=== PATIENT | female | born 1975 | race Caucasian/White ===

== ENCOUNTER 2022-10-07 12:30 | Outpatient (AMB) | payer OTHER, MEDICAID, SELFPAY ==
[2022-10-07 12:40] VITALS: BMI 24.4
--- NOTE | 2022-10-07 12:40 | MHC.OFFVIS ---
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 States she is experiencing numbness, tingling, swelling and weakness for the last 3 months. States no injury. Also has right middle and ring finger trigger finger for the last 7 years. Explains she feels tightness in her arm from her bicep to her finger. States this prevent her from doing her daily activities. States she has constant numbness in her ring finger. She is not able to make a full close fist and is not able to fully open hand with out severe pain. Patient believes she might have a fracture in her ring finger. Allergies aspirin Allergy (Mild, Verified 10/07/22 12:41) hives acetaminophen [From TYLENOL] Allergy (Unknown, Unverified 10/07/22 12:41) HIVES meperidine [Demerol] Allergy (Unknown, Verified 10/07/22 12:41) hives Sulfa (Sulfonamide Antibiotics) [SULFA(SULFONAMIDE ANTIBIOTICS)] Allergy (Unknown, Unverified 10/07/22 12:41) FEVER/BODY ACHES Sulfacet-R Allergy (Mild, Uncoded 10/07/22 12:41) comma From DEMEROL Allergy (Unknown, Uncoded 10/07/22 12:41) ANAPHYLAXIS HPI SEO PROFESSIONAL-CTS RT hand Swelling and weakness HPI Details Annalise is a 47 year old right hand dominant woman who presents with complaints of right hand pain. Her primary complaint is of pain in her hand with daily activity. She says she cannot make a closed fist or fully extend her fingers without pain. She also complains of tightness in her arm, from her biceps down to her fingers. She says this limits her ADLs and is frustrated by this She also complains of constant numbness in her ring finger, better on the ulnar aspect of the finger, with normal sensation in her other digits Most of her pain is in the volar aspect of her middle & ring fingers She reports being bitten by her cat ~4 months ago, not on her hand or wrist. She denies any symptoms of infection She denies any other falls or known injury She is a smoker. She does not have RA, but says she has Primary progressive multiple sclerosis (PPMS). She has a hx of C-spine surgery C3-C4 and bulging discs at C2-C3, C4-C5, and C6-C7 She has a long list of previous active jobs, including landscaping, owning a restaurant, cleaning houses, and detailing cars [facility] Surgical History (Updated 11/03/21 @ 13:42 by PAVAN Blankenship) H/O cervical spine surgery History of hysterectomy Social History (Updated 10/07/22 @ 12:43 by Nae Carranza [facility]) Current occupational status: disabled Current occupation: right hand / Review of Systems Const All systems reviewed & are unremarkable except as noted in HPI and below Physical Exam Vital Signs: BMI result Body Mass Index 24.4 Const General: cooperative, healthy appearing and no acute distress Orientation/consciousness: patient oriented x3 HEENT Head: Yes normocephalic and Yes atraumatic Eyes EOM: EOMs intact bilaterally Resp Effort & Inspection: normal respiratory effort and able to speak in complete sentences Cardio Jugular venous distension: no JVD Skin General skin exam: turgor normal Rashes: no rashes Neuro General: patient oriented x3 Extrem Other: Evaluation of Right Upper Extremity: The patient is alert, oriented, and in no acute distress Neuro: Numbness in the radial side of the ring finger and ulnar side of the middle finger. More normal sensation in the ulnar aspect of the ring finger, and the index finger. Normal sensation to thumb and small finger. Vascular: Cap refill brisk ROM: All of the fingers are held in a position of slight flexion. She was weakly able to demonstrate flexion of the index middle and ring fingers. Small finger: Normal FDP and FDS tendon function without discomfort. Thumb: Normal active flexion and extension without discomfort. Attempt set active extension of the fingers limited by pain referred to the volar aspect of the wrist. Unable to passively extend the fingers fully also because of pain referred to the volar aspect of the wrist. Similarly, she would not actively flex her index middle and ring fingers to a fist because of the pain referred to the volar aspect of the wrist. Full active flexion and extension of the thumb and small finger without pain. There is a visible fullness in the volar aspect of the left wrist that measures approximately 3 cm in diameter. There is perhaps a slight bluish discoloration beneath the skin. No overlying skin changes. It is also mildly tender to palpation. She only has a small amount of active or passive wrist flexion wrist extension because this also causes pain in the volar aspect of her wrist. Skin: No lacerations or abrasions. Specifically, no lacerations or evidence of open injury over the volar aspect of the wrist She denies ever having surgery over the volar aspect of her wrist. General: No Ecchymosis. No Erythema or evidence of infection. Psych Appearance: grossly normal Affect: normal affect Attitude: cooperative Assessment & Plan Assessment & Plan (1) Numbness and tingling in right hand: Code(s): R20.0 - Anesthesia of skin; R20.2 - Paresthesia of skin (2) Mass of right wrist: Code(s): R22.31 - Localized swelling, mass and lump, right upper limb Plan Assessment & Plan: 1. Right volar wrist mass Possible flexor tenosynovitis vs flexor tendon injury Duration ~3 months No known injury 2. Numbness involving the middle and ring fingers Possibly related to right wrist mass I educated her about this condition. The etiology of her mass is unclear. This volar wrist mass definitely appears to be related to the pain she has with active her passive range of motion of the index middle or ring fingers, or of significant motion at the wrist. I believe this mass is also likely related to the numbness that she is having in the middle and ring fingers. Some possibilities are a flexor tenosynovitis, possible flexor tendon rupture injury, though I am not sure why she would have this problem. Another possibility is some other kind of soft tissue mass in the area. I ordered an MRI of her right wrist with IV contrast for assessment She will follow up when completed for review Patient reports rheumatologic work-up was negative Scribed for Olimpia Castillo MD by Alfa Doan, medical and health services manager, on 10/07/22 at 1:20 PM, EST. Orders: Orders MR wrist RT wo/w con Today R20.0 - Anesthesia of skin, R20.2 - Paresthesia of skin, R22.31 - Localized swelling, mass and lump, right upper limb Coding Level of Care Code New Pt Level 3 (96606) Diagnoses Numbness and tingling in right hand R20.0; R20.2 Mass of right wrist R22.31
== END 2022-10-07 13:19 | disposition home or self-care (01) ==
PROVIDERS: PCP Family Medicine; Visit Provider Orthopaedic Surgery
DX: R22.31 Localized swelling, mass and lump, right upper limb (principal); R20.0 Anesthesia of skin; R20.2 Paresthesia of skin
CPT/HCPCS: 99204

== ENCOUNTER → 2022-10-07 12:30 | Outpatient (BNVA) | payer MEDICARE, MEDICAID, SELFPAY | PROVIDERS: PCP Family Medicine; Visit Provider Orthopaedic Surgery ==

== ENCOUNTER 2022-11-09 14:03 | Outpatient (AMB) | payer OTHER, MEDICAID, SELFPAY ==
--- NOTE | 2022-11-09 14:08 | A.OFFVIS_ITS ---
Intake Vital Signs 11/09/22 14:16 Height 5 ft 4 in Weight 142 lb 3 oz BMI 24.4 BP 154/78 H Blood Pressure Location Rt brachial Position Sitting Pulse 75 Pulse Source Pulse Oximeter Pulse Oximetry (%) 96 Oxygen Delivery Method Room Air Intake Visit Reasons: cervical radiculopathy /Confirmed Intake Note: Pain today 08/17 Oil Field Equipment Mechanic Required: No Allergies aspirin Allergy (Mild, Verified 11/09/22 14:18) hives acetaminophen [From TYLENOL] Allergy (Unknown, Verified 11/09/22 14:18) HIVES meperidine [Demerol] Allergy (Unknown, Verified 11/09/22 14:18) hives Sulfa (Sulfonamide Antibiotics) [SULFA(SULFONAMIDE ANTIBIOTICS)] Allergy (Unknown, Verified 11/09/22 14:18) FEVER/BODY ACHES Sulfacet-R Allergy (Mild, Uncoded 10/07/22 12:41) comma From DEMEROL Allergy (Unknown, Uncoded 10/07/22 12:41) ANAPHYLAXIS Medication List - Last Reconciled 11/09/22 by SAGAR Gibson gabapentin 400 mg PO TID ibuprofen 600 mg PO TID methadone 80 mg PO DAILY omeprazole 20 mg PO DAILY HPI cervical radiculopathy /Confirmed HPI Details Patient is a pleasant 47 years old female with history of chronic cervical radiculopathy, s/p C6-C7 ACDF in [address] [facility], presents today for initial evaluation of chronic neck pain. Denies any recent trauma, injury or falls. Patient reports neck pain with extension and limited with lateral moves. Cervical flexion or bending relieves her neck pain. Right hand dominant. She also is following with Dr. Castillo for right hand pain with numbness and tingling and evaluation of wrist lump. She is awaiting MRI of right wrist. Neck exam did not reproduce any cervical radiculopathy symptoms today. Her right hand pain does radiate to her lower arm and lateral upper arm. Pain affects her daily activities, functioning, mood, social interactions, sleep and quality of life. Patient reports she has been told no additional neck surgery is needed per recent cervical MRI in August. Patient is interested to undergo diagnostic cervical medial branch blocks for her facetogenic, axial cervical pain for potential peripiheral nerve stimulation with Sprint device. Denies any fever, visual changes, headaches, shortness of breaths, chest pain, gait imbalances, bladder or bowel dysfunction or saddle anesthesia. Patient is a smoker who is trying to quit. She reports 2 cigarettes per day and would like to quit smoking as she recently became grandma and would like to quit permanently. 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 She is on methadone 80 mg/daily. Location Neck Duration Chronic pain for many years Characteristics of symptom or complaint Aching, shock, stabbing, weakness right hand (wrist lump) Aggravating or associated factors Movements, looking up, stress, weather changes Relieving factors Tylenol, methadone, NSAIDs Treatment C6-C7 ACDF surgery in 2013, home exercise program-neck stretches daily [facility] Surgical History (Updated 11/09/22 @ 14:19 by SAGAR Gibson) H/O cervical spine surgery History of hysterectomy Social History (Updated 10/07/22 @ 12:43 by Nae Cararnza [facility]) Alcohol intake: never Patient Tobacco Use Status: Current everyday Tobacco user Tobacco use type: Cigarette Cigarettes Per Day: 2 Substance Use Type: Marijuana Current occupational status: disabled Current occupation: right hand / Review of Systems Const All systems reviewed & are unremarkable except as noted in HPI and below Physical Exam General: Appears afebrile. Alert and oriented. Mood and affect appropriate. Follows and participates in conversation appropriately. Respiratory effort is unlabored. No cough. Able to transition from sit to stand unassisted. Ambulates with bilaterally normal heel strike and toe off. Neck Other: Patient with decreased cervical ROM with lateral rotation. Reports increased pain with cervical extension and relieved with flexion or bending. Spurling compression test negative Pain is unchanged by Spurling maneuver with retraction. Elvey's tension test negative bilaterally. Lhermitte's test was negative. DTR intact, +2 and symmetrical. Patient demonstrated 5/5 left and 3- 4/5 right due to pain motor strength of bilateral upper extremities. 2 + radial pulses. Small tenderness lump right wrist. Reports numbness and tingling in 3- 4th fingers and occasionally 5th finger on the right. Normal sensation right thumb. Mild to moderate tightness throughout left upper trapezius as well as TTP throughout bilateral upper trapezius muscles. No paravertebral tenderness over facet joint on affected side. No clonus. Neck: Yes normal visual inspection, Yes no lymphadenopathy, Yes no meningeal signs, Yes supple, No anterior neck swelling and Yes no JVD Back/Spine/Pelvis Cervical Spine: cervical muscular tenderness, pain with cervical ROM, cervical spasm, No Cervical spine tenderness and No step off deformity Thoracic/Lumbar Spine: thoracic and lumbar spine normal to inspection, No thoracic spinal tenderness and No lumbar spinal tenderness Neuro General: no meningeal signs Results Reviewed Results Reviewed: MR CERVICAL SPINE WITHOUT CONTRAST 08/13/22 at [facility] CLINICAL INFORMATION: Prior cervical spine surgery in 2013. Chronic cervical radiculopathy. COMPARISON: None available. TECHNIQUE: Multiplanar, multisequential imaging of the cervical spine was performed without contrast. FINDINGS: VERTEBRAL BODIES AND PARASPINAL SOFT TISSUES: The patient is status post a prior anterior cervical discectomy and fusion at the C6-C7 level. The marrow signal is homogeneous. There are no compression fractures or significant subluxations. No marrow or soft tissue edema identified. No cord signal abnormality is seen. CERVICOMEDULLARY JUNCTION AND VISUALIZED POSTERIOR FOSSA: The craniovertebral junction and imaged portions of the brain parenchyma appear normal. SPINAL LEVELS: C2-C3: No significant disc pathology. No central canal stenosis or foraminal narrowing. C3-C4: Mild disc bulge and anterior endplate spurring. No central canal stenosis or foraminal narrowing. Left-sided hypertrophic facet arthropathy. C4-C5: Right-sided hypertrophic facet arthropathy. No central canal stenosis or significant foraminal encroachment. No disc pathology. C5-C6: Mild disc bulge with right-sided hypertrophic facet arthropathy. No central canal stenosis or foraminal narrowing. C6-C7: Post fusion changes without central canal stenosis or foraminal narrowing. C7-T1: No disc pathology. Patent central canal and foramina with mild facet arthropathy. IMPRESSION: Status post anterior cervical discectomy and fusion with hardware instrumentation at C6-C7. Mild disc bulges at C3-C4 and C5-C6. Hypertrophic facet arthropathy on the left side at C3-C4 and on the right side at C4-C5 and C5-C6. No central canal stenosis or focal disc protrusion. Assessment & Plan Assessment & Plan (1) H/O cervical spine surgery: Code(s): Z98.890 - Other specified postprocedural states (2) Chronic cervical radiculopathy: Code(s): M54.12 - Radiculopathy, cervical region (3) Cervical spondyloarthritis: Code(s): M47.812 - Spondylosis without myelopathy or radiculopathy, cervical region Plan Schedule Diagnostic Bilateral C4-C5-C6 MBBs with local and fluoroscopy for axial, facetogenic cervical pain. If she has significant relief from the diagnostic blocks for her neck pain, will consider Sprint PNS trial. We also discussed therapeutic injections and cervical medial branch RFA options. Informational pamphlets provided to patient. Expectations, risks and benefits were reviewed. Patient is aware she will be contacted to schedule this procedure. All questions were answered and the patient is in agreement of plan. Follow-up after injections and sooner as needed. Coding Level of Care Code New Pt Level 4 (29334) Diagnoses H/O cervical spine surgery Z98.890 Chronic cervical radiculopathy M54.12 Cervical spondyloarthritis M47.812
[2022-11-09 14:16] VITALS: BP 154/78; PULSE 75; O2SAT 96; BMI 24.4
== END 2022-11-09 14:41 | disposition home or self-care (01) ==
PROVIDERS: PCP Family Medicine; Visit Provider Nurse Practitioner Family
DX: M54.12 Radiculopathy, cervical region (principal); M47.812 Spondylosis without myelopathy or radiculopathy, cervical region; Z98.890 Other specified postprocedural states
CPT/HCPCS: 99204

== ENCOUNTER → 2022-11-09 14:03 | Outpatient (BNVA) | payer OTHER, SELFPAY | PROVIDERS: PCP Family Medicine; Visit Provider Nurse Practitioner Family ==

== ENCOUNTER 2022-12-18 11:47 | Outpatient (REF) | payer OTHER, SELFPAY ==
[2022-12-18 14:42] LABS: Anion Gap 8 (12-20); Blood Urea Nitrogen 20 mg/dL (9-16); Carbon Dioxide 28 mmol/L (22-29); Chloride 106 mmol/L (96-108); Estimated Glomerular Filt Rate > 60; Glucose Random 89 mg/dL (60-115); Potassium 4.1 mmol/L (3.3-5.1); Sodium 138 mmol/L (135-145)
== END 2022-12-18 11:48 | disposition home or self-care (01) ==
LOC: HO.CHCLDS 11:47
PROVIDERS: Visit Provider Family Medicine
DX: M54.12 Radiculopathy, cervical region (principal)
CPT/HCPCS: 36415; 80048

== ENCOUNTER 2023-01-15 11:07 | Outpatient (REF) | payer OTHER, SELFPAY ==
[2023-01-15 15:01] LABS: Rheumatoid Factor 112.4 IU/mL (<15.0)
[2023-01-15 15:02] LABS: C Reactive Protein 1.02 mg/dL (< or = 0.50)
[2023-01-15 15:32] LABS: Erythrocyte Sedimentation Rate 22 MM/HR (0-20)
[2023-01-16 04:28] LABS: ~Hepatitis C Antibody Nonreactive (Nonreactive)
[2023-01-16 05:48] LABS: Lyme Abs Screen <0.90 index
[2023-01-18 13:03] LABS: Cyclic Citrullinated Peptide 215 UNITS
[2023-01-19 08:04] LABS: Anti Nuclear Antibody Screen NEGATIVE (NEGATIVE)
[2023-01-19 18:35] LABS: Anti DNA DS Antibody <1 IU/mL
== END 2023-01-15 11:08 | disposition home or self-care (01) ==
LOC: HO.CHCLDS 11:07
PROVIDERS: Visit Provider Family Medicine
DX: M25.50 Pain in unspecified joint (principal)
CPT/HCPCS: 36415; 85652; 86038; 86140; 86200; 86225; 86431; 86617; 86618; 86803

== ENCOUNTER 2023-07-14 14:35 | Outpatient (REF) | payer MEDICARE, MEDICAID, SELFPAY ==
[2023-07-14 18:47] LABS: Basophils Percent Auto 0.2 % (0-2); Hematocrit 38.8 % (37.0-47.0); Hemoglobin 12.7 g/dl (12.0-16.0); Imm Gran Abs Auto 0.06 X10*3/uL (0.00-0.03); Imm Gran Pct Auto 0.5 % (0.0-0.4); Lymphocytes Absolute Auto 0.7 X10*3/uL (1.2-4.9); Lymphocytes Percent Auto 5.4 % (20-40); MANUAL DIFF FLAG SCAN; Mean Corpuscular HGB Conc 32.7 g/dl (31.0-35.0); Mean Corpuscular Hemoglobin 30.3 pg (27.0-33.0); Mean Corpuscular Volume 92.6 fL (80.0-98.0); Mean Platelet Volume 10.7 fL (9.4-12.3); Monocytes Absolute Auto 0.1 X10*3/uL (0.1-1.2); Monocytes Percent Auto 0.8 % (2-11); Neutrophils Absolute Auto 12.2 x10*3/uL (2.0-8.3); Neutrophils Percent Auto 93.1 % (45-73); Platelet Count 294 X10*3/uL (160-400); Red Blood Count 4.19 X10*6/uL (4.20-5.50); Red Cell Distribution Width 14.2 % (11.0-16.0); SCAN SMEAR FLAG 1
[2023-07-14 19:01] LABS: Alanine Aminotransferase 11 U/L (0-31); Albumin Level 4.1 g/dL (3.5-5.0); Alkaline Phosphatase 73 U/L (39-117); Anion Gap 15 (12-20); Aspartate Amino Transferase 12 U/L (5-31); Bilirubin Total 0.2 mg/dL (0.0-1.0); Blood Urea Nitrogen 13 mg/dL (9-16); Calcium 9.5 mg/dL (8.4-10.2); Carbon Dioxide 25 mmol/L (22-29); Chloride 105 mmol/L (96-108); Estimated Glomerular Filt Rate > 60; Glucose Random 119 mg/dL (60-115); Potassium 4.2 mmol/L (3.3-5.1); Sodium 141 mmol/L (135-145)
[2023-07-14 19:10] LABS: SLIDE REVIEW VERIFIED
[2023-07-15 04:25] LABS: HBc Num1 0.07 S/CO (0.00-0.79); HBsAGNum1 0.28 S/CO (0.00-0.99); Hepatitis A Antibody IgM 0.54 Index (0-0.79); Hepatitis B Core Antibody Nonreactive (Nonreactive); Hepatitis B Surface Antigen Negative (Negative); ~HepC Num1 0.08 S/CO (0.00-0.79); ~Hepatitis A Antibody IgM Nonreactive (Nonreactive); ~Hepatitis B Surface Antibody NONREACTIVE (Nonreactive); ~Hepatitis C Antibody Nonreactive (Nonreactive)
[2023-07-17 21:18] LABS: TS Negative Control Passed; TS Panel A 1; TS Panel B 0; TS Positive Control Passed; TSpotTB Negative (Negative)
== END 2023-07-14 14:36 | disposition home or self-care (01) ==
LOC: HO.CHCLDS 14:35
PROVIDERS: Visit Provider Family Medicine
DX: M25.50 Pain in unspecified joint (principal); Z51.81 Encounter for therapeutic drug level monitoring; Z11.59 Encounter for screening for other viral diseases; Z72.89 Other problems related to lifestyle
CPT/HCPCS: 36415; 80053; 85025; 86481; 86704; 86706; 86709; 86803; 87340

== ENCOUNTER 2024-11-06 10:52 | Outpatient (REF) | payer MEDICARE, MEDICAID, SELFPAY ==
--- OUTSIDE RECORDS SUMMARY | 2024-11-06 10:00 | XMS_ITS | Encounter Summary ---
Author Organization [employer] Address [address] [place] [address] Care Team Providers Care Meteorologist Liaison Name Role Phone Tessy Mcgraw MD Primary Care Provider [phone] Reason for Referral * Imaging (Routine) - Authorized Specialty Diagnoses / Procedures Referred By Prasad lucia Referred To Contact Radiology Diagnoses Breast cancer screening by mammogram Procedures BI Mammogram Screening Tomosynthesis Bilateral Tessy Mcgraw MD [address] [place] [address] Phone: tel: fax: [facility] Referral ID Status Reason Start Date Expiration Date V isits Requested Visits Authorized [id number] Authorized 11/06/2024 11/06/2025 1 1 * Consultation (Routine) - Pending Review Specialty Diagnoses / Procedures Referred By Prasad lucia Referred To Contact Gastroenterology Diagnoses Dysphagia, unspecified type Tessy Mcgraw MD [address] [place] [address] Phone: tel: fax: Referral ID Status Reason Start Date Expiration Date Visits Requested Visits Authorized [id number] Pending Review Specialty Services Required 11/06/2024 11/06/2025 1 1 * Imaging (Routine) - Authorized Specialty Diagnoses / Procedures Referred By Contac t Referred To Contact Radiology Diagnoses Dysphagia, unspecified type Procedures FL Esophagus Barium Swallow Tessy Mcgraw MD [address] [place] [address] Phone: tel: fax: [facility] Referral ID Status Reason Start Date Expiration Date Visits Requested Visits Authorized [id number] Authorized Perform Procedure 11/06/2024 11/06/2025 1 1 Encounter Details Date Type Department Care Team ([facility] st Contact Info) Description 11/06/2024 10:00 AM EDT Office Visit [facility] MED [facility] PEDS [address] [place] [address] Tessy Mcgraw MD [address] [place] [address] Dysphagia, unspecified type (Primary Dx); 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, unspecified laterality (CMS/HCC); skilled nursing systemic steroid user; Medication monitoring encounter; Encounter for screening for other viral diseases; Encounter for health-related screening; Screen for STD (sexually transmitted disease); Breast cancer screening by mammogram Social History Tobacco Use Types Packs/Day Years Used Date Smoking Tobacco: Every Day Cigarettes Passive Smoke Exposure: Never Smokeless Tobacco: Former Alcohol Use Standard Drinks/Week Comments Never 0 (1 standard drink = 0.6 oz pur e alcohol) Depression Answer Date Recorded Patient Health Questionnaire-9 Score 24 01/20/2024 Patient Health Questionnaire-9 Score 24 01/20/2024 Last PHQ-9: Questionnaire Data Not on file 1 03/22/2023 Housing Stability Answer Date Recorded What is your housing situation today? I have edgard nunez 09/08/[address] you li ve. Do you have problems with any of the following? None of the above 09/08/2024 Food Insecurity Answer Date Recorded Within the past 12 months, y ou worried that your food would run out before you got money to buy more: Sometimes True 2024 Within the past 12 months,th e food you bought just didn't last and you didn't have enough money to get more: Sometimes True 09/08/2024 Transportation Answer Date Recorded In the past 12 months, has l ack of transportation kept you from medical appts, meetings, work or from getting things needed for daily living? No 09/08/2024 Utilities Answer Date Recorded In the past 12 months, has t he electric, gas, oil or water company threatened to shut off services in your home? Yes 09/08/2024 Depression Answer Date Recorded Patient Health Questionnaire-2 Score 6 01/20/2024 Internet Access Answer Date Recorded Internet Access Q1 No 09/08/2024 Internet Access Q2 I cannot afford it 09/08/2024 Comments Unknown Sex and Gender Information Value Date Recorded Sex Assigned at Female 12/08/2021 10:24 AM EDT Legal Sex Female 10:24 AM EDT Gender Identity Female 12/08/2021 10:24 AM EDT Sexual Orientation Straight 12/08/2021 10 :24 AM EDT documented as of this encounter Last Filed Vital Signs Vital Sign Reading Time Taken Comments Blood Pressure 124/80 11/06/2024 10:08 AM EDT Pulse 82 11/06/2024 10:08 AM EDT Temperature 36.8 C (98.2 F) 11/06/2024 10:08 AM EDT Respiratory Rate 20 11/06/2024 10:08 AM EDT Oxygen Saturation 98% 11/06/2024 10:08 AM EDT Inhaled Oxygen Concentration - - Weight 55.8 kg (123 lb) 11/06/2024 10:08 AM EDT Height 162.6 cm (5' 4 ) 11/06/2024 10:08 AM EDT Body Mass Index 21.11 11/06/2024 10:08 AM EDT documented in this encounter Plan of Treatment Scheduled Orders Name Type Priority Associated Diagnoses Orde r Schedule FL Esophagus Barium Swallow Imaging Routine Dysphagia, unspecified type Expected: 11/06/2024, Expires: 11/06/2025 CBC auto differential Lab Routine Medication monitoring encounter Expected: 11/06/2024 (Approximate), Expires: 11/06/2025 Comprehensive Metabolic Panel Lab Routine Medication monitoring encounter Expected: 11/06/2024 (Approximate), Expires: 11/06/2025 Hepatitis A,B,C Profile Lab Routine Medication monitoring encounter Encounter for screening for other viral diseases Expected: 11/06/2024, Expires: 11/06/2025 HIV-1/2 Antigen and Antibodies, Fourth Generation, with Reflexes Lab Routine Screen for STD (sexually transmitted disease) Expected: 11/06/2024 (Approximate), Expires: 11/06/2025 BI Mammogram Screening Tomosynthesis Bilateral Imaging Routine Breast cancer screening by mammogram Expected: 11/06/2024, Expires: 01/06/2026 Scheduled Referrals Name Type Priority Associated Diagnoses Order Schedule Referral to Gastroenterology Outpatient Referral Routine Dysphagia, unspecified type Expected: 11/06/2024 (Approximate), Expires: 11/06/2025 documented as of this encounter Visit Diagnoses Diagnosis Dysphagia, unspecified type- Primary 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, unspecified laterality (HCC) buttermaker systemic steroid user Medication monitoring encounter Encounter for therapeutic drug monitoring Encounter for screening for other viral diseases Encounter for health-related screening Screen for STD (sexually transmitted disease) Screening examination for venereal disease Breast cancer screening by mammogram documented in this encounter Additional Health Concerns Assessment Noted Time PHQ-9 Depression Total Score: 24 024 2:28 PM EST documented as of this encounter Care Teams Meteorologist Liaison Relationship Specialty Start Date End Date Tessy Mcgraw MD [address] [place] [id number] PCP - General Family Medicine 06/26/22 documented as of this encounter
--- OUTSIDE RECORDS SUMMARY | 2024-11-06 12:24 | XMS_ITS | Encounter Summary ---
Author Organization [employer] Address [address] [place] [address] Care Team Providers Care Envelope Maker Name Role Phone Tessy Mcgraw MD Primary Care Provider [phone] Reason for Visit * Reason Onset Date Comments chart prep 11/03/2024 Encounter Details Date Type Department Care Team ([facility] Contact Info) Description 11/03/2024 Telephone [facility] MED & PEDS [address] [place] [address] Tessy Mcgraw MD [address] [place] [address] chart prep Social History Tobacco Use Types Packs/Day Years [...] AM EDT documented as of this encounter Miscellaneous Notes * Telephone Encounter - Abdirashid Bose [place] - 11/03/2024 10:48 AM EDT Chart Prep Labs: not done Images: not done Referrals: appointment pending Vaccines due: Covid, Flu, PCV20, and Tdap Screenings: mammogram Overdue care gaps: PHQ-9 and Disability screen documented in this encounter Plan of Treatment Not on file documented as of this encounter Visit Diagnoses Not on filedocumented in this encounter Additional Health Concerns Assessment Noted Time PHQ-9 Depression Total Score: 24 024 2:28 PM EST documented as of this encounter Care Teams Envelope Maker Relationship Specialty Start Date End Date Tessy Mcgraw MD [address] [place] [address] PCP - General Family Medicine 06/26/22 documented as of this encounter
--- OUTSIDE RECORDS SUMMARY | 2024-11-06 12:24 | XMS_ITS | Clinical Summary ---
Author Organization [facility] Address [address] [place] [phone] Phone Care Team Providers Care Hairspring Inspector Name Role Phone Referring, Not Required Primary Care Provider Un available Immunizations Immunization Administration Dates Next Due Hepatitis B Adult 06/30/2018,05/31/2018 Pneumococcal polysaccharide PPSV23 06/07/2013 Tdap 06/07/2013 Social History Tobacco Use Types Packs/Day Years Used Date Smoking Tobacco: Never Assessed Education Answer Date Recorded Are you interested in more education? Not on julio cesar e 06/05/2022 Are you concerned about learning? Not on file 06/05/2022 No 06/05/2022 No 06/05/2022 Digital Access Answer Date Recorded No 07/06/2022 No 07/06/2022 Reliable internet access at home? Not on file 07/06/2022 Device with a working camera? Not on file Comments Unknown Sex and Gender Information Value Date Recorded Sex Assigned at Not on file Legal Sex Female 9:26 PM EDT Gender Identity Not on file Sexual Orientation Not on file Last Filed Vital Signs Vital Sign Reading Time Taken Comments Blood Pressure 120/82 06/24/2015 1:57 AM EDT Pulse - - Temperature - - Respiratory Rate - - Oxygen Saturation - - Inhaled Oxygen Concentration - - Weight 65.6 kg (144 lb 11.2 oz) 06/24/2015 1:57 AM EDT Height 162.6 cm (5' 4 ) 06/24/2015 1:57 AM EDT Body Mass Index 24.84 06/24/2015 1:57 AM EDT Plan of Treatment Health Maintenance Due Date Last Done Comments LIPID PANEL 1976 DEPRESSION SCREENING 1988 SMOKING Hx and SMOKELESS TOB ACCO SCREENING 1989 HEPATITIS C SCREENING 1994 HIV ONE-TIME SCREENING (18-6 5 YEARS) 1994 MAMMOGRAM 2016 05/15/2010 COLOGUARD 2021 COLONOSCOPY 2021 COLORECTAL CANCER SCREENING 2021 FIT TEST 2021 FOBT 2021 SIGMOIDOSCOPY 2021 VIRTUAL COLONOSCOPY 2021 Adult Td,Tdap Booster 06/08/2023 06/07/2013 INFLUENZA VACCINE (#1) 2024 COVID-19 VACCINE ( - 2023-2 5 season) 2024 PNEUMOCOCCAL VACCINES (0-49 years) Aged Out 2013 No longer eligible based on patient's age to complete this topic HEPATITIS A VACCINES Aged Out No long er eligible based on patient's age to complete this topic HIB VACCINES Aged Out No longer eligi ble based on patient's age to complete this topic MENINGOCOCCAL VACCINES (ACWY) Aged Out No longer eligible based on patient's age to complete this topic MENINGOCOCCAL VACCINES (B) Aged Out N o longer eligible based on patient's age to complete this topic Medical Devices Not on file Insurance MEDICARE PART A & B [facility] C[facility] MEDICARE REPLACEMENT MEDICARE PART A & B [employer] [facility] CARE MEDICARE REPLACEMENT MEDICARE PART A & B [facility] C[facility] MEDICARE REPLACEMENT MEDICARE PART A & B MEDICARE REPLACEMENT MEDICARE PART A & B [facility] [place] [phone] MEDICARE PART A & B [facility] [place] [address] [place] [phone] Care Teams Hairspring Inspector Relationship Specialty Start Date End Date Referring, Not Required PCP - General 09/16/21 Additional Source Comments The information contained in this document represents components of the legal health record. It is not the complete legal health record.[facility]
--- OUTSIDE RECORDS SUMMARY | 2024-11-06 12:24 | XMS_ITS | Clinical Summary ---
Author Organization [employer] Address [address] [place] [address] Care Team Providers Care Childhood Teacher Name Role Phone Tessy Mcgraw MD Primary Care Provider [phone] Allergies Active Allergy Reactions Criticality Noted Date Comments Acetaminophen 06/26/2022 Other reaction(s): high doses= n/v, rash Aspirin 06/26/2022 Other reaction(s): gi upset Doxepin Rash Low 10/26/2022 Hydroxychloroquine 07/01/2018 Pregabalin Itching 07/14/2023 Meperidine Hcl 06/26/2022 Other reaction(s): fever & mental status changes Nortriptyline Rash Low 10/26/2022 Sulfa Antibiotics 06/26/2022 Medications methadone (Dolophine) 10 MG/ML solution Take 80 mg by mouth. [place], [place] Active albuterol 108 (90 Base) MCG/ACT inhaler Inhale 2 puffs every 4 (four) hours if needed for wheezing. 18 g 06/27/19 23 Active fluticasone (Flovent) 110 MCG/ACT inhaler Inhale 1 puff in the morning and at bedtime. Rinse mouth with water after use to reduce aftertaste and incidence of candidiasis. Do not swallow. 12 g 5 08/04/19 23 Active folic acid (Folvite) 800 MCG tablet Take 1 tablet (0.8 mg) by mouth Once per day. 120 tablet 3 01/20/20 24 Active famotidine (Pepcid) 20 MG tablet Take 2 tablets (40 mg) by mouth 2 times daily. 180 tablet 1 08/22/19 25 Active predniSONE (Deltasone) 20 MG tablet Take 1 tablet (20 mg) by mouth 2 times daily. 60 tablet 1 09/27/19 25 Active pantoprazole (Protonix) 40 MG EC tablet Take 1 tablet (40 mg) by mouth before breakfast. Do not crush, chew, or split. 90 tablet 1 11/07/19 25 Active ibuprofen 800 MG tablet TAKE 1 TABLET BY MOUTH IN THE MORNING, AT NOON AND AT BEDTIME NEEDED FOR PAIN OR FEVER 100 tablet 11/07/19 25 Active diclofenac (Cataflam) 50 MG tablet Take 1 tablet (50 mg) by mouth 3 times daily. 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 Acute pain of left shoulder 01/20/2024 Assessment & Plan (01/20/2024 2:56 PM EST): Ordering XR for further evaluation. Rheumatoid arthritis with po sitive rheumatoid factor ([facility]/HCC) 06/10/2023 Assessment & Plan (08/21/2024 12:14 PM EDT): Patient reports worsening RA symptoms, including severe joint pain, limited range of motion in wrists and fingers, and inability to straighten fingers. She expresses frustration with previous rheumatology referrals and appointments, stating she has not been contacted for follow-up. Patient is currently on prednisone but is concerned about long-term steroid use and its effects on her stomach and bones. She reports high pain tolerance but is struggling with daily activities, including holding her grandchild. Patient expresses a desire for biologic medications to prevent further joint damage. Plan: - Cont prednisone for now - Order Lexiscan to assess bone health due to prolonged steroid use - Submit urgent rheumatology referral - Schedule follow-up appointment on September 15 at 10:30 AM - Educate patient on appropriate use of steroids during flare-ups (up to twice daily) - Discuss risks and benefits of continued steroid use, including potential bone and gastrointestinal effects Assessment & Plan (01/20/2024 2:57 PM EST): Advised to follow up with [facility] for further evaluation. Follow up on 01/25/2024. Assessment & Plan (07/14/2023 2:33 PM EDT): Will cont prednisone, needs labs to assess starting DMARDs. Pending referral to female rheum, requested [place] to assess if they received referral and when they will call patient for appointment. Assessment & Plan (06/10/2023 10:51 AM EDT): Discussed with patient getting labs to be able to proceed with DMARD, she will need the management of this medical condition by a tank cleaner, as they are train and equipped to manage RA. Will cont prednisone until she is wean off by rheum. Until she start prednisone the pain was so severe it was affecting her sleep and her ability of basic ADLs. Polyarthralgia 01/15/2023 Assessment & Plan (05/31/2023 8:38 PM EDT): Continued severe pain, referring to Rheumatology. Begin Lyrica and Prednisone for pain management. Hx of POS RA & antiCCP. Patient trial of Lyrica which did not improve her symptoms, reports concerns with medication given side effects. Relevant Medication Pregabalin (Lyrica) 75 mg Capsule Predinisone (Deltasone) 20 mg Tablet Assessment & Plan (01/15/2023 10:50 AM EST): Patient that presented visit with concerns of Polyarthralgia will be prescribed steroids. In addition, patient will be referred to Rheumatology. Furthermore, patient will be sent for labs. -Labs: LARRY Screen, C-Reactive Prtn., CCP, Hep.C, Lyme Disease (IgG,IgM), Sed Rate M.W., Rheumatoid Factor, DNA (ds) Antibody. Mass of joint of right wrist 12/22/2022 Assessment & Plan (12/22/2022 11:22 AM EST): Patient had been seen by hand surgeon earlier this year due to concern of inflammation and mass in volar eminance of her R wrist, she had been order an MRI but per patient prior insurance did not follow with authorization. She has since changed insurance and will want to proceed with workup, order placed. Medial epicondylitis of elbow, left 12/18/2022 Arthritis of left knee 10/26/2022 Assessment & Plan (10/26/2022 9:40 AM EDT): Patient will need a prescription for L knee brace. Will follow up in 1 week. Insomnia 10/26/2022 Assessment & Plan (11/02/2022 12:58 PM EDT): Patient has not been able to trial seroquel, vigilant of meds that have cardiac side effects. Will let us know if she has issues with getting medications. Assessment & Plan (10/26/2022 9:39 AM EDT): Patient was prescribed medication to treat insomnia. Hyperpigmented skin lesion 09/11/2022 Assessment & Plan (09/11/2022 9:40 AM EDT): Patient with facial hyperpigmented lesion. Will request to dermatology for further evaluation. Great toe pain, right 08/03/2022 Assessment & Plan (08/03/2022 1:05 PM EDT): Patient with great big toe pain on R foot with tenderness upon examination. Will send for xray of R foot. Chronic cough 08/03/2022 Assessment & Plan (08/03/2022 1:06 PM EDT): Patient with chronic cough, improved on albuterol. Will refer to mental hygiene consultant for further evaluation and start on Flovent 1 puff BID. Anxiety 06/26/2022 Chronic bilateral low back pain without sciatica 06/26/2022 Assessment & Plan (11/02/2022 9:49 AM EDT): Patient still presents complaints of pain, no changes within the plan, will follow up in a week. If there's no improvements, will change medication to Lyrica. Migraine headache 06/26/2022 Cervical radiculopathy, chronic 06/26/2022 Assessment & Plan (12/22/2022 11:23 AM EST): Patient report minimal relief with gabapentin but declined switching medication further. She did request ibuprofen. Reports she is not comfortable with doing injections for her neck, will continue symptomatic management, cont gabapentin and ibuprofen Assessment & Plan (11/02/2022 12:57 PM EDT): Patient unable to start medication given issues with insurance coverage, reports that it has not been up to know that she has gotten MRI approved. She has multiple med interactions and side effects with keep upcoming appt. Assessment & Plan (10/26/2022 10:43 AM EDT): Patient with chronic pain was given pain medication and referred to pain management. Pain interfering with her ADLs, had MRI cervical and neurosurgery refused referral and recommended pain management, multiple med interactions/& side effects Assessment & Plan (09/11/2022 9:40 AM EDT): Patient with chronic persistent pain. At this point will trial toradol injection send diclofenac, nortriptyline, and doxepin nightly for symptom relief. Will benefit from referral to neurosurgery, referral placed. Assessment & Plan (06/26/2022 10:02 AM EDT): Patient with chronic neck pain. Will benefit from a MRI and referral to neurosurgeon. Referral placed. Heart valve disease 06/26/2022 Assessment & Plan (06/26/2022 10:03 AM EDT): History of heart valve disease. Will benefit from referral to cardiology. Referral placed. Sneezing 06/26/2022 Assessment & Plan (06/26/2022 10:04 AM EDT): Patient with history of sneeze attacks, exacerbated as of 1 month with associated tinnitus and vision loss. Will refer to ENT. Bladder prolapse, female, acquired 06/26/2022 Posttraumatic stress disorder 04/26/2018 Congenital deafness 04/26/2018 Assessment & Plan (06/26/2022 10:02 AM EDT): Patient with congenital hearing loss in R ear. Will refer to ENT for further evaluation. H/O: hysterectomy 04/26/2018 Tobacco dependence syndrome 04/26/2018 Resolved Problems Problem Noted Date Diagnosed Date Resolved Date Asthma 06/26/2022 06/26/2022 Rheumatoid arthritis involvi ng multiple sites with positive rheumatoid factor ([facility]/HCC) 05/31/2018 06/26/2022 Encounters Date Type Department Care Team Description 11/06/2024 10:00 AM EDT Office Visit [facility] [address] [place] [address] Tessy Mcgraw MD Dysphagia, unspecified type (Primary Dx); 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, unspecified laterality ([facility]/HCC); halfway systemic steroid user; Medication monitoring encounter; Encounter for screening for other viral diseases; Encounter for health-related screening; Screen for STD (sexually transmitted disease); Breast cancer screening by mammogram 11/06/2024 Travel 11/03/2024 Telephone [facility] [address] [place] [address] Tessy Mcgraw MD chart prep 10/30/2024 Patient Outreach [facility] [address] [place] [address] Tessy Mcgraw MD Pre-visit Planning (SDOH screening completed on 09/08/24) 09/21/2024 Refill [facility] [address] [place] [address] Tessy Mcgraw MD 09/12/2024 Telephone [facility] [address] [place] [address] Tessy Mcgraw MD CHART PREP 09/08/2024 Patient Outreach [facility] [address] [place] [address] Tessy Mcgraw MD Care Coordination (C3 -W Cookie Meléndez telephone call outreach /) 09/08/2024 Patient Outreach [facility] [address] [place] [address] Tessy Mcgraw MD Pre-visit Planning (SDOH screening positive and Tobacco screening positive) 08/21/2024 9:00 AM EDT Office Visit [facility] [address] [place] [address] Tessy Mcgraw MD 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, unspecified laterality (CMS/HCC) (Primary Dx); halfway systemic steroid user; Rheumatoid arthritis with positive rheumatoid factor, involving unspecified site (CMS/HCC); Dysphagia, unspecified type 08/21/2024 Travel 08/07/2024 Telephone [facility] [address] [place], [place] [phone] Tessy Mcgraw MD from Last 3 Months Immunizations Immunization Administration Dates Next Due Hep B, adult 06/30/2018,05/31/2018 Pneumococcal Polysaccharide PPSV23 06/07/2013 Tdap 06/07/2013 Social History Tobacco Use Types Packs/Day Years Used Date Smoking Tobacco: Every Day Cigarettes Passive Smoke Exposure: Never Smokeless Tobacco: Former Tobacco Cessation:Ready to Q uit: Not Asked; Counseling Given: Not Answered Alcohol Use Standard Drinks/Week Comments Never 0 [...] Orientation Straight 12/08/2021 10 :24 AM EDT Last Filed Vital Signs Vital Sign Reading [...] Mass Index 21.11 11/06/2024 10:08 AM EDT Plan of Treatment Health Maintenance Due Date Last Done Comments CT Colonography 1976 Colonoscopy 1976 FIT 1976 Sigmoidoscopy 1976 Disability Screening 1976 Family Planning (PISQ) 04/29/1991 Pap Smear 1997 HPV/Cotest 2006 Mammogram 2016 FOBT 01/07/2024 01/06/2023 Depression Monitoring 07/20/2024 01/20/2024, 024 Influenza Vaccine (#1) 2025 Postp oned from 10/09/2024 (Patient Refused) Alcohol/Substance Use Screening 08/21/2025 08/21/2024 SDOH Screening 09/08/2025 09/08/2024 COVID-19 Vaccine (1 - season) 2025 Postponed from 10/09/2024 (Patient Refused) DTaP/Tdap/Td Vaccines (2 - Td or Tdap) 11/06/2025 06/07/2013 Postponed from 06/08/2023 (Patient Refused) Pneumococcal Vaccine: Pediatrics (0 to 5 Years) and At-Risk Patients (6 to 49) Years (2 of 2 - PCV) 11/06/2025 06/07/2013 Postponed from 06/07/2014 (Patient Refused) Tobacco Screening 11/06/2025 11/06/2024 Colorectal Cancer Screening 01/06/2026 FIT DNA/Cologuard 01/06/2026 01/06/2023 Zoster Vaccines (1 of 2) 2026 Lipid Panel 08/04/2027 08/03/2022, 09/15/2021 RSV Patients and Patients Aged 60 years or older (1 - 1-dose 75+ series) 04/29/2051 Hepatitis B Vaccines Discontinued 06/30/2018, 06/01/19 19 HIV Screening Completed 08/03/2022, 09/15/2021 Hepatitis C Screening Completed 07/14/2023 , 01/15/2023, 08/03/2022, Additional history exists Cervical Cancer Screening Discontinued HIB Vaccines Aged Out No longer eligi ble based on patient's age to complete this topic HPV Vaccines Aged Out No longer eligi ble based on patient's age to complete this topic Hepatitis A Vaccines Discontinued IPV Vaccines Aged Out No longer eligi ble based on patient's age to complete this topic Meningococcal B Vaccine Aged Out No l onger eligible based on patient's age to complete this topic Meningococcal Vaccine Aged Out No lisseth moshe eligible based on patient's age to complete this topic RSV under 20 months Aged Out No longe r eligible based on patient's age to complete this topic Rotavirus Vaccines Aged Out No longer eligible based on patient's age to complete this topic Procedures Procedure Name Priority Date/Time Associated Diagnosis Comments AMB REFERRAL TO RHEUMATOLOGY Urgent 10/11/2024 Rheumatoid arthritis with positive rheumatoid factor, involving unspecified site (CMS/HCC) HEPATITIS PANEL, GENERAL Routine 07/14/2023 2:37 PM EDT Therapeutic drug monitoring Encounter for screening for other viral diseases LAB COLOGUARD COLON CANCER SCREEN Routine 01/06/2023 8:15 AM EST Colon cancer screening HIV 1/2 ANTIGEN/ANTIBODY, FOURTH GENERATION W/RFL Routine 08/03/2022 11:26 AM EDT Encounter for health-related screening LIPID PANEL, STANDARD Routine 08/03/2022 11:26 AM EDT Encounter for health-related screening from Last 3 Months or Most Recently Relevant to Health Maintenance Results * Referral to Rheumatology (10/11/2024) Tessy Mcgraw MD OUTPATIENT REFERRAL ORDERABLE S Final Result * Hepatitis A,B,C Profile (07/14/2023 2:37 PM EDT) Hepatitis A IgM Nonreactive Nonreactive [facility] Comment:IgM antibodies to [place] V not detected; does not exclude earlyacute or recovered HAV infection. ~Hepatitis B Surface Antibody NONREACTIVE Nonreactive [facility] Comment:Nonreactive: < 8.00 mIU/mL Hepatitis B Core Antibody Nonreactive Nonreactive [facility] Hepatitis C Antibody Nonreactive Nonreactive [facility] Comment:Antibodies to HCV no t detected; does not exclude early acuteHCV infection. Hepatitis B Surface Ag Negative Negative [facility] Blood Venous blood specimen / Unknown 07/14/2023 2:37 PM EDT 07/14/2023 6:34 PM EDT us Tessy Mcgraw MD LAB BLOOD ORDERABLES Final Re sult [facility] [address] [place] [phone] * Cologuard?? colon cancer screening (01/06/2023 8:15 AM EST) Cologuard Result Negative Negative 01/15/20 5:12 AM EST [employer] (IA #:[id number]) Comment: NEGATIVE TEST RESULT. A negative Cologuard result indicates a low likelihood that a colorectal cancer (CRC) or advanced adenoma (adenomatous polyps with more advanced pre-malignant features) is present. The chance that a person with a negative Cologuard test has a colorectal cancer is less than 1 in 1500 (negative predictive value >99.9%) or has an advanced adenoma is less than 5.3% (negative predictive value 94.7%). These data are based on a prospective cross-sectional study of 10,000 individuals at average risk for colorectal cancer who were screened with both Cologuard and colonoscopy. (Rea Cherry al, N Engl J Med 2014;370(14):8654-4381) The normal value (reference range) for this assay is negative. COLOGUARD RE-SCREENING RECOMMENDATION: Periodic colorectal cancer screening is an important part of preventive healthcare for asymptomatic individuals at average risk for colorectal cancer. Following a negative Cologuard result, the [place] [employer] Society and U.S. Multi-Society Task Force screening guidelines recommend a Cologuard re-screening interval of 3 years. References: [place] [employer] Guideline for Colorectal Cancer Screening: https://www.cancer.org/cancer/hufuo-hgajei-zwnioq/vgrazvina-lbtfyasyl-ygtupya/ac s-rec ommendations.html.; Huseyin DK, Brannon CHAIREZ, Edwin BoneK, Colorectal Cancer Screening: Recommendations for Physicians and Patients from the U.S. Multi-Society Task Force on Colorectal Cancer Screening , Am J Gastroenterology 2017; 112:1248-8847. TEST DESCRIPTION: Composite algorithmic analysis of stool DNA-biomarkers with hemoglobin immunoassay. Quantitative values of individual biomarkers are not reportable and are not associated with individual biomarker result reference ranges. Cologuard is intended for colorectal cancer screening of adults of either sex, 45 years or older, who are at average-risk for colorectal cancer (CRC). Cologuard has been approved for use by the U.S. FDA. The performance of Cologuard was established in a cross sectional study of average-risk adults aged 50-84. Cologuard performance in patients ages 45 to 49 years was estimated by sub-group analysis of near-age groups. Colonoscopies performed for a positive result may find as the most clinically significant lesion: colorectal cancer [4.0%], advanced adenoma (including sessile serrated polyps greater than or equal to 1cm diameter) [20%] or non- advanced adenoma [31%]; or no colorectal neoplasia [45%]. These estimates are derived from a prospective cross-sectional screening study of 10,000 individuals at average risk for colorectal cancer who were screened with both Cologuard and colonoscopy. (Rea Cheney et al, N Engl J Med 2014;370(14):3094-3314.) Cologuard may produce a false negative or false positive result (no colorectal cancer or precancerous polyp present at colonoscopy follow up). A negative Cologuard test result does not guarantee the absence of CRC or advanced adenoma (pre-cancer). The current Cologuard screening interval is every 3 years. ([place] [employer] Society and U.S. Multi-Society Task Force). Cologuard performance data in a 10,000 patient pivotal study using colonoscopy as the reference method can be accessed at the following location: www.[employer]/results. Additional description of the Cologuard test process, warnings and precautions can be found at www.[email or web address].com. Stool specimen (specimen) 01/06/2023 8:15 AM EST 01/07/2023 6:22 PM EST Tessy Mcgraw MD LAB MOLECULAR DIAGNOSTICS ORD ERABLES Final Result [employer] (CLIA #:[id number]) [place] [address], * HIV-1/2 Antigen and Antibodies, Fourth Generation, with Reflexes (08/03/2022 11:26 AM EDT) HIV Antigen/Antibody, 4th Generation NON-REAC TIVE NON-REAC TIVE [facility] Comment: HIV-1 antigen and HIV-1/HIV-2 antibodies were not detected. There is no laboratory evidence of HIV infection. PLEASE NOTE: This information has been disclosed to you from records whose confidentiality may be protected by state law. If your state requires such protection, then the state law prohibits you from making any further disclosure of the information without the specific written consent of the person to whom it pertains, or as otherwise permitted by law. A general authorization for the release of medical or other information is NOT sufficient for this purpose. For additional information please refer to http://education.[employer]/faq/PMY639 (This link is being provided for informational/ educational purposes only.) The performance of this assay has not been clinically validated in patients less than 2 years old. Blood Venous blood specimen / Unknown 08/03/2022 11:26 AM EDT 08/03/2022 11:27 AM EDT [facility] - 08/04/2022 8:13 PM EDT FASTING:NO FASTING: NO us Tessy Mcgraw MD LAB BLOOD ORDERABLES Final Re sult [facility] [address], [place] [address] [facility] [place] [employer] [address] [place] [address] * (ABNORMAL) Lipid Panel, Standard (08/03/2022 11:26 AM EDT) [facility] Signature Cholesterol, Total 154 <200 mg/dL [facility] [place] [employer] HDL Cholesterol 49(L) > OR = 50 mg/dL [facility] [place] [employer] Triglycerides 70 <150 mg/dL [facility] [place] [employer] LDL Cholesterol 89 mg/dL (calc) [facility] [place] [employer] Comment: Reference range: <100 Desirable range <100 mg/dL for primary prevention; <70 mg/dL for patients with CHD or diabetic patients with > or = 2 CHD risk factors. LDL-C is now calculated using the Su calculation, which is a validated novel method providing better accuracy than the Friedewald equation in the estimation of LDL-C. Agustín COOK et al. SABRA. 2013;310(19): 2843-4816 (http://education.[employer]/faq/UHT564) Chol/HDLC Ratio 3.1 <5.0 (calc) [facility] [place] [employer] Non-HDL Cholesterol 105 <130 mg/dL (calc) [facility] [employer] Comment: For patients with diabetes plus 1 major ASCVD risk factor, treating to a non-HDL-C goal of <100 mg/dL (LDL-C of <70 mg/dL) is considered a therapeutic option. Blood Venous blood specimen / Unknown 08/03/2022 11:26 AM EDT 08/03/2022 11:27 AM EDT Narrative [facility] - 08/04/2022 8:13 PM EDT FASTING:NO FASTING: NO us Tessy Mcgraw MD LAB BLOOD ORDERABLES Final Re sult [facility] [address], [place] [address] [facility] [place] [employer] [address] [place] [address] from Last 3 Months or Most Recently Relevant to Health Maintenance Insurance [place] [address] STANDARD MEDICARE [place], [place] Care Teams Childhood Teacher Relationship Specialty Start Date End Date Tessy Mcgraw MD [address] [place] [id number] PCP - General Family Medicine 06/26/22
--- OUTSIDE RECORDS SUMMARY | 2024-11-06 12:24 | XMS_ITS | Encounter Summary ---
Author Organization [employer] Address [address] [place] [address] Care Team Providers Care Blankmaker Name Role Phone Tessy Mcgraw MD Primary Care Provider [phone] Encounter Details Date Type Department Care Team (Latest Contact Info) Description 11/06/2024 Travel Social History Tobacco Use Types Packs/Day Years [...] AM EDT documented as of this encounter Plan of Treatment Not on file documented as of this encounter Visit Diagnoses Not on filedocumented in this encounter Additional Health Concerns Assessment Noted Time PHQ-9 Depression Total Score: 24 024 2:28 PM EST documented as of this encounter Care Teams Blankmaker Relationship Specialty Start Date End Date Tessy Mcgraw MD [address] [place] [phone] PCP - General Family Medicine 06/26/22 documented as of this encounter
--- OUTSIDE RECORDS SUMMARY | 2024-11-06 12:24 | XMS_ITS | Encounter Summary ---
Author Organization [employer] Address [address] [place] [address] Care Team Providers Care Deputy Director Of Finance Name Role Phone Tessy Mcgraw MD Primary Care Provider [phone] Encounter Details Date Type Department Care Team (Late st Contact Info) Description 03/17/2024 Orders Only [facility] MED[facility]INE [address] [place], [place] [id number] Yessenia Suggs MD [address] [place] [address] Social History Tobacco Use Types Packs/Day Years [...] housing situation today? I have edgard nunez 11/25/[address] you li ve. Do you have problems with any of the following? None of the above 11/25/2022 Food Insecurity Answer Date Recorded Within the past 12 months, y ou worried that your food would run out before you got money to buy more: Never True 11/25/2022 Within the past 12 months,th e food you bought just didn't last and you didn't have enough money to get more: Never True Transportation Answer Date Recorded In the past 12 months, has l ack of transportation kept you from medical appts, meetings, work or from getting things needed for daily living? No 11/25/2022 Utilities Answer Date Recorded In the past 12 months, has t he electric, gas, oil or water company threatened to shut off services in your home? No 11/25/2022 Depression Answer Date Recorded Patient Health Questionnaire-2 Score 6 01/20/2024 Comments Unknown Sex and Gender Information Value [...] documented as of this encounter Care Teams Deputy Director Of Finance Relationship Specialty Start Date End Date Tessy Mcgraw MD [address] [place] [address] PCP - General Family Medicine 06/26/22 documented as of this encounter"
--- OUTSIDE RECORDS SUMMARY | 2024-11-06 12:24 | XMS_ITS | Encounter Summary ---
Author Organization [employer] Address [address] [place] [address] Care Team Providers Care Hyperbaric Nurse Name Role Phone Tessy Mcgraw MD Primary Care Provider [phone] Reason for Visit * Reason Comments Med Refill Encounter Details Date Type Department Care Team ([facility] st Contact Info) Description 07/16/2023 Refill [facility] [address] [place] [address] Tessy Mcgraw MD [address] [place] [address] Rheumatoid arthritis with positive rheumatoid factor, involving unspecified site ([facility]) Social History Tobacco Use Types Packs/Day Years Used Date Smoking Tobacco: Every Day Cigarettes Passive Smoke Exposure: Never Smokeless Tobacco: Former Alcohol Use Standard Drinks/Week Comments Never 0 (1 standard drink = 0.6 oz pur e alcohol) Depression Answer Date Recorded Patient Health Questionnaire-9 Score 13 01/15/2023 Patient Health Questionnaire-9 Score 13 01/15/2023 Last PHQ-9: Questionnaire Data Not on file 1 03/18/2022 Housing Stability Answer Date Recorded What is [...] Answer Date Recorded Patient Health Questionnaire-2 Score 4 01/15/2023 Comments Unknown Sex and Gender Information Value Date Recorded Sex Assigned at Female 12/08/2021 10:24 AM EDT Legal Sex Female 10:24 AM EDT Gender Identity Female 12/08/2021 10:24 AM EDT Sexual Orientation Straight 12/08/2021 10 :24 AM EDT documented as of this encounter Plan of Treatment Not on file documented as of this encounter Visit Diagnoses Diagnosis Rheumatoid arthritis with positive rheumatoid factor, involving unspecified site ([facility] ([facility]) documented in this encounter Additional Health Concerns Assessment Noted Time PHQ-9 Depression Total Score: 13 023 10:33 AM EST documented as of this encounter Care Teams Hyperbaric Nurse Relationship Specialty Start Date End Date Tessy Mcgraw MD [address] [place] [address] PCP - General Family Medicine 06/26/22 documented as of this encounter
--- OUTSIDE RECORDS SUMMARY | 2024-11-06 12:24 | XMS_ITS | Encounter Summary ---
Author Organization [employer] Address [address] [place] [address] Care Team Providers Care University Counselor Name Role Phone Tessy Mcgraw MD Primary Care Provider [phone] Reason for Visit * Reason Onset Date Comments Nurse Triage 03/17/2024 Encounter Details Date Type Department Care Team (Late st Contact Info) Description 03/17/2024 Telephone [facility] [address] [place] [address] Tessy Mcgraw MD [address] [place], [place] [phone] Nurse Triage Social History Tobacco Use Types Packs/Day Years [...] encounter Miscellaneous Notes * Telephone Encounter - Siobhan Lowry RN - 03/17/2024 10:52 AM EST called pt to triage spoke to pt. pt states worsening RA pain for 3-4 days and requesting Prednisone. pt states has agreement with her PCP about getting the Prednisone as needed and advised to pt thather PCP is currently out on VIC[facility]A. pt states generalized joint pain all over and needs this medication. offered appt today or Wednesday with another provider, declined. pt states babysits her grandchildren and is unable to come in. advised will send request to the [facility] nurse team and have them call back as needed. pt understands and agrees with plan. insurance verified. Protocol Used: Muscle Aches and Body Pain (Adult) Protocol-Based Disposition: See in Office or Video Visit within 2 Weeks Video visit offer not recorded Positive Triage Question: * Muscle aches or body pains are a chronic symptom (recurrent or ongoing AND present > 4 weeks) * All higher-acuity triage questions were negative Care Advice Discussed: * Pain Medicines * Reasons To Call Back - Fever occurs - Pain lasts longer than 7 days - You become worse * Telephone Encounter - Galen Villa - 03/17/2024 10:08 AM EST Symptoms: Arm Pain - Not From Injury, Neck Pain - Not From Injury, Elbow Pain - Not From Injury, Shoulder Pain - Not From Injury, Knee Pain - Not From Injury, Finger Pain - Not From Injury Outcome: Talk to a nurse or provider within 15 minutes Reason: Weakness of the arm The caller accepted this outcome. predniSONE (Deltasone) 20 MG tablet documented in this encounter Plan of Treatment Not on file documented as of this encounter Visit Diagnoses Not on filedocumented in this encounter Additional Health Concerns Assessment Noted Time PHQ-9 Depression Total Score: 24 024 2:28 PM EST documented as of this encounter Care Teams University Counselor Relationship Specialty Start Date End Date Tessy Mcgraw MD [address] [place] [address] PCP - General Family Medicine 06/26/22 documented as of this encounter
[2024-11-06 14:10] LABS: MANUAL DIFF FLAG NO
[2024-11-06 14:19] LABS: Hematocrit 40.5 % (37.0-47.0); Hemoglobin 13.0 g/dl (12.0-16.0); Imm Gran Abs Auto 0.05 X10*3/uL (0.00-0.03); Imm Gran Pct Auto 0.5 % (0.0-0.4); Lymphocytes Absolute Auto 2.1 X10*3/uL (1.2-4.9); Mean Corpuscular HGB Conc 32.1 g/dl (31.0-35.0); Mean Corpuscular Hemoglobin 28.8 pg (27.0-33.0); Mean Corpuscular Volume 89.6 fL (80.0-98.0); NRBC Abs Auto 0.000 X10*3/uL (0.0-0.012); NRBC Pct Auto 0.0 /100WBC (0.0-0.2); Platelet Count 406 X10*3/uL (160-400); Red Blood Count 4.52 X10*6/uL (4.20-5.50); White Blood Count 10.4 X10*3/uL (4.8-10.8)
[2024-11-06 14:34] LABS: Alanine Aminotransferase 12 U/L (0-31); Albumin Level 4.4 g/dL (3.5-5.0); Alkaline Phosphatase 76 U/L (39-117); Anion Gap 11 (12-20); Aspartate Amino Transferase 17 U/L (5-31); Blood Urea Nitrogen 20 mg/dL (9-16); Calcium 9.5 mg/dL (8.4-10.2); Carbon Dioxide 29 mmol/L (22-29); Chloride 107 mmol/L (96-108); Estimated Glomerular Filt Rate > 60; Potassium 4.0 mmol/L (3.3-5.1); Sodium 143 mmol/L (135-145); Total Protein 7.5 g/dL (6.5-8.0)
[2024-11-07 05:37] LABS: HBS Num1 0.93 mIU/mL (0-7.99); HBc Num1 0.07 S/CO (0.00-0.79); HBsAGNum1 0.34 S/CO (0.00-0.99); HIV Num 1 0.06 S/CO (0.00-0.99); Hepatitis A Antibody IgM 0.19 Index (0-0.79); Hepatitis B Surface Antigen Negative (Negative); ~HepC Num1 0.09 S/CO (0.00-0.79); ~Hepatitis A Antibody IgM Nonreactive (Nonreactive); ~Hepatitis B Surface Antibody NONREACTIVE (Nonreactive); ~Hepatitis C Antibody Nonreactive (Nonreactive)
== END 2024-11-06 10:53 | disposition home or self-care (01) ==
LOC: HO.CHCLDS 10:52
PROVIDERS: Visit Provider Family Medicine
DX: Z11.3 Encounter for screening for infections with a predominantly sexual mode of transmission (principal); Z11.59 Encounter for screening for other viral diseases; Z51.81 Encounter for therapeutic drug level monitoring; Z79.899 Other long term (current) drug therapy; Z72.89 Other problems related to lifestyle
CPT/HCPCS: 36415; 80053; 85025; 86704; 86706; 86709; 86803; 87340; 87389